=== PATIENT | male | born 1990 | race African-American/Black ===

== ENCOUNTER 2017-09-07 07:24 | Emergency (ER) | payer OTHER ==
[~2017-09-07] VITALS: Ht 182.9 cm; Wt 73.8 kg
[2017-09-07] MEDS ORDERED: FLEXERIL10 MG PO (08:30)
[2017-09-07] MEDS ORDERED: MOTRIN800 MG PO (08:30)
[2017-09-07 08:47] VITALS: BP 122/78
== END 2017-09-07 08:54 | disposition home or self-care (01) ==
LOC: EME 07:24
DX: S16.1XXA Strain of muscle, fascia and tendon at neck level, initial encounter (principal); M25.511 Pain in right shoulder; V47.5XXA Car driver injured in collision with fixed or stationary object in traffic accident, initial encounter; Y92.410 Unspecified street and highway as the place of occurrence of the external cause; F17.200 Nicotine dependence, unspecified, uncomplicated
CPT/HCPCS: 72050; 72070; 99281; 99284